=== PATIENT | female | born 1950 | race American Indian/Alaskan Native ===

== ENCOUNTER 2019-06-08 07:58 | Day surgery (SDC) | payer BC, OTHER, MEDICARE ==
[2019-06-08] MEDS ORDERED: Dexamethasone 4 MG/ML SDV INH ONE (07:59)
[2019-06-08] MEDS ORDERED: Midazolam 1 MG/ML 2 ML SDV IV ONE (07:59)
[2019-06-08] MEDS ORDERED: Acetaminophen 325 MG Tab PO PRN (08:00)
[2019-06-08] MEDS ORDERED: Povidone-Iodine 5% Sterile Ophth Soln 30 ML Bottle EYERT ONE ×2 (08:00→09:15)
[2019-06-08] MEDS ORDERED: Cataract Ophth Solution EYERT ONE (08:00)
[2019-06-08] MEDS ORDERED: Proparacaine 0.5% Ophth Soln 15 ML Bottle EYERT ONE (08:00)
[2019-06-08] MEDS ORDERED: Moxifloxacin 0.5% Ophth Soln 3 ML Bottle EYERT ONE (08:00)
[2019-06-08] MEDS ORDERED: Timolol Maleate 0.5% Ophth Soln 5 ML Bottle EYERT ONE (08:00)
[2019-06-08] MEDS ORDERED: Phenylephrine 10% Ophth Soln 5 ML Bot EYERT PRN (08:00)
[2019-06-08] MEDS ORDERED: Phenylephrine 10% Ophth Soln 5 ML Bot EYERT ONE (08:00)
[2019-06-08] MEDS ORDERED: Sodium Chloride 0.9% 10 ML Syringe FLUSH PRN (08:00)
[2019-06-08] MEDS ORDERED: Ondansetron 4 MG/2 ML SDV IVPUSH PRN (08:00)
[2019-06-08] MEDS ORDERED: Lidocaine 1% 30 ML SDV ONE (09:15)
[2019-06-08] MEDS ORDERED: Apraclonidine 0.5% Ophth Soln 5 ML Bot EYERT ONE (09:15)
[2019-06-08] MEDS ORDERED: Tetracaine HCl/PF 0.5% 4 ML Bottle EYERT ONE (09:15)
[2019-06-08] MEDS ORDERED: Diclofenac Sodium 0.1% Ophth Soln 5 ML Bottle EYERT ONE (09:15)
[2019-06-08] MEDS ORDERED: Dexamethasone/Tobramycin 0.1-0.3% Ophth Oint 3.5 GM Tube EYERT ONE (09:16)
[2019-06-08] MEDS ORDERED: Chondroitin Sulfate/Hyaluronate Sodium Ophth Inj 0.75 ML Syringe EYERT ONE (09:17)
[2019-06-08] MEDS ORDERED: Balanced Salt Solution Ophth Irrig 500 ML Bottle IOCULAR ONE (09:17)
[2019-06-08] MEDS ORDERED: Vancomycin 500 MG SDV EYERT ONE (09:17)
--- NOTE | 2019-06-09 08:34 | OR ---
DATE: 06/08/2019 PREOPERATIVE DIAGNOSIS: Visually significant mixed cataract, right eye. POSTOPERATIVE DIAGNOSIS: Visually significant mixed cataract, right eye. PROCEDURE: Extracapsular cataract extraction with intraocular lens implant, right eye. ANESTHESIA: Topical/local MAC. COMPLICATIONS: None. INDICATION: Ms. Mazariegos was seen in the clinic with complaints of blurred vision. The examination revealed visually significant mixed cataract. I explained options, offered cataract surgery, and I explained risks, including, but not limited to, infection, retinal detachment, loss of vision, need for additional surgery, amongst others. We discussed implant options. She has requested a monofocal implant. She understands that she may require glasses following surgery, especially for near work. OPERATIVE DESCRIPTION: After informed consent was obtained and the risks, benefits, and alternatives were explained, the patient was brought to the operative suite and topical anesthesia was administered. The patient was then prepped and draped in the sterile fashion and attention was placed on the right eye. A sterile lid speculum was placed into the right eye to allow operative exposure. A full-thickness paracentesis was made in the temporal portion of the operative eye. Preservative-free lidocaine 0.1 mL was injected into the anterior chamber followed by viscoelastic. A full-thickness corneal incision was then made into the anterior chamber. A bent needle cystotome was used to create a small nancie in the anterior capsule. The capsulorrhexis forceps was then used to create a 360-degree curvilinear capsulorrhexis. The nucleus was then removed using a phacoemulsification handpiece and the remaining cortical material was then removed with irrigation and aspiration handpiece. Following removal of the cortical material, the capsular bag was then inspected and noted to be free of any holes or tears. Viscoelastic was then injected into the capsular bag and the intraocular lens was inserted into the capsular bag. The viscoelastic material was then removed from both the anterior and posterior chambers and from behind the IOL. The lens and capsular bag were then reinspected. The IOL was well centered and the capsular bag intact. The wound and paracentesis sites were inspected and hydrated with balanced saline solution. Both were found to be self- sealing. The intraocular pressure was assessed digitally and found to be within normal range. A good red reflex was noted at the completion of the procedure. No complications occurred during the operation. At the completion of the procedure, Maxitrol, Voltaren, and Iopidine drops were placed into the operative eye. A sterile eye shield was placed over the operative eye and the patient was transported to the postoperative recovery area having tolerated the procedure well. Postoperative instructions were given along with a postoperative appointment. The patient was advised to call with any questions or concerns. [facility] /[id number]
== END 2019-06-08 10:25 | disposition home or self-care (01) ==
LOC: DL.SDS 07:58
PROVIDERS: ATTEND Ophthalmology
DX: E11.36 Type 2 diabetes mellitus with diabetic cataract (principal); I10 Essential (primary) hypertension; I25.10 Atherosclerotic heart disease of native coronary artery without angina pectoris; E78.5 Hyperlipidemia, unspecified; K76.0 Fatty (change of) liver, not elsewhere classified; E11.40 Type 2 diabetes mellitus with diabetic neuropathy, unspecified; E55.9 Vitamin D deficiency, unspecified; Z79.84 Long term (current) use of oral hypoglycemic drugs; Z88.1 Allergy status to other antibiotic agents; Z88.0 Allergy status to penicillin; Z88.2 Allergy status to sulfonamides; Z88.5 Allergy status to narcotic agent; Z88.6 Allergy status to analgesic agent; Z79.899 Other long term (current) drug therapy; Z79.82 Long term (current) use of aspirin
CPT/HCPCS: 66984; 82962; A9270; J1100; J2001; J2250; J3370; V2632

== ENCOUNTER 2023-03-27 18:01 | Emergency (ER) | payer BC, OTHER ==
[2023-03-27] MEDS ORDERED: Diltiazem 25 MG/5 ML SDV IVPUSH ONE ×2 (18:19→19:43)
[2023-03-27 18:27] LABS: BASOPHILS PERCENT AUTO 0.2 % (0.0-1.0); EOSINOPHILS PERCENT AUTO 1.6 % (1.0-3.0); HEMATOCRIT 44.7 % (37.0-47.0); HEMOGLOBIN 14.6 g/dL (12.0-16.0); LYMPHOCYTES PERCENT AUTO 24.1 % (20.5-50.1); MEAN CORPUSCULAR HEMOGLOBIN 28.7 pg (27.0-34.0); MEAN CORPUSCULAR HGB CONC 32.7 g/dL (33.0-35.0); MEAN CORPUSCULAR VOLUME 87.8 fL (80-100); NEUTROPHILS PERCENT AUTO 64.1 % (42.2-75.2); PLATELET COUNT,PLT 245 10^3/uL (150-450); RED BLOOD CELL COUNT 5.09 10^6/uL (4.2-5.4); WHITE BLOOD CELL COUNT,WBC 8.7 10^3/uL (5.0-10.0)
[2023-03-27 18:44] LABS: PROTHROMBIN TIME 9.9 SEC (9.0-12.0)
[2023-03-27 18:45] LABS: AMPHETAMINES,URINE NEGATIVE (NEGATIVE); BARBITURATES,URINE NEGATIVE (NEGATIVE); BENZODIAZEPINE,URINE NEGATIVE (NEGATIVE); MDMA (ECSTASY), URINE NEGATIVE (NEGATIVE); METHADONE,URINE NEGATIVE (NEGATIVE); METHAMPHETAMINES,URINE NEGATIVE (NEGATIVE); OPIATES,URINE NEGATIVE (NEGATIVE); OXYCODONE,URINE NEGATIVE (NEGATIVE); PHENCYCLIDINE,URINE NEGATIVE (NEGATIVE); TCA,URINE NEGATIVE (NEGATIVE)
[2023-03-27 18:58] LABS: ALANINE AMINOTRANSFERASE,ALT 27 U/L (14-59); ALBUMIN 3.6 g/dL (3.4-5.0); ALKALINE PHOSPHATASE 99 U/L (46-116); ANION GAP 11.4 mEq/L (7-13); ASPARTATE AMNIOTRANSFERASE,AST 26 U/L (15-37); BILIRUBIN TOTAL 0.7 mg/dL (0.2-1.0); BLOOD UREA NITROGEN,BUN 14 mg/dL (7-18); BUN/CREATININE RATIO 15.7 (No establ ref range); C-REACTIVE PROTEIN < 0.2 mg/dL (0.0-0.9); CARBON DIOXIDE,CO2 30 mmol/L (21-32); CHLORIDE,CL 104 mmol/L (98-107); CREATININE 0.89 mg/dL (0.55-1.02); EST CRCL DRUG DOSING (CG) 51.41 mL/min; ESTIMATED GFR 69 mL/min (>=60); ETHANOL BLOOD MEDICAL < 3 mg/dL (0); GLUCOSE RANDOM 190 mg/dL (70-99); POTASSIUM,K 4.4 mmol/L (3.5-5.1); PROTEIN TOTAL,TP 7.3 g/dL (6.4-8.2); SODIUM,NA 141 mmol/L (136-145); TSH ULTRASENSITIVE 0.69 uIU/mL (0.36-3.74)
[2023-03-27] MEDS ORDERED: Sodium Chloride 0.9% 1,000 ML IV ONE (20:21)
[2023-03-27] MEDS ORDERED: Apixaban 5 MG Tab PO ONE (20:51)
== END 2023-03-27 21:12 | disposition home or self-care (01) ==
LOC: DL.ED 18:01
DX: I48.91 Unspecified atrial fibrillation (principal); I25.10 Atherosclerotic heart disease of native coronary artery without angina pectoris; E78.00 Pure hypercholesterolemia, unspecified; I10 Essential (primary) hypertension; E11.43 Type 2 diabetes mellitus with diabetic autonomic (poly)neuropathy; Z79.82 Long term (current) use of aspirin; Z79.84 Long term (current) use of oral hypoglycemic drugs; Z79.899 Other long term (current) drug therapy; Z88.0 Allergy status to penicillin; Z88.1 Allergy status to other antibiotic agents; Z88.2 Allergy status to sulfonamides; Z88.5 Allergy status to narcotic agent; Z88.8 Allergy status to other drugs, medicaments and biological substances
CPT/HCPCS: 36415; 71045; 80053; 80305; 80307; 84443; 84484; 85025; 85379; 85610; 86140; 93005; 93010; 96361; 96374; 96376; 99284; 99285; A9270; J3490; J7030

== ENCOUNTER 2023-04-19 06:32 | Emergency (ER) | payer BC, OTHER ==
[2023-04-19] MEDS ORDERED: Aspirin 81 MG Tab.Chew PO ONE (06:45)
[2023-04-19] MEDS ORDERED: Sodium Chloride 0.9% 10 ML Syringe FLUSH PRN (06:45)
[2023-04-19 06:54] LABS: BASOPHILS PERCENT AUTO 0.4 % (0.0-1.0); EOSINOPHILS PERCENT AUTO 4.5 % (1.0-3.0); HEMATOCRIT 44.1 % (37.0-47.0); HEMOGLOBIN 14.3 g/dL (12.0-16.0); LYMPHOCYTES PERCENT AUTO 26.7 % (20.5-50.1); MEAN CORPUSCULAR HEMOGLOBIN 28.7 pg (27.0-34.0); MEAN CORPUSCULAR HGB CONC 32.4 g/dL (33.0-35.0); MEAN CORPUSCULAR VOLUME 88.6 fL (80-100); MONOCYTES PERCENT AUTO 10.2 % (2-8); NEUTROPHILS PERCENT AUTO 58.2 % (42.2-75.2); PLATELET COUNT,PLT 271 10^3/uL (150-450); RED BLOOD CELL COUNT 4.98 10^6/uL (4.2-5.4); WHITE BLOOD CELL COUNT,WBC 6.7 10^3/uL (5.0-10.0)
[2023-04-19 07:13] LABS: ANION GAP 14.9 mEq/L (7-13); CALCIUM 8.8 mg/dL (8.5-10.1); CREATININE 0.56 mg/dL (0.55-1.02); EST CRCL DRUG DOSING (CG) 81.71 mL/min; POTASSIUM,K 4.9 mmol/L (3.5-5.1)
== END 2023-04-19 09:54 | disposition home or self-care (01) ==
LOC: DL.ED 06:32
DX: R07.89 Other chest pain (principal); K52.9 Noninfective gastroenteritis and colitis, unspecified; I25.10 Atherosclerotic heart disease of native coronary artery without angina pectoris; I48.91 Unspecified atrial fibrillation; I10 Essential (primary) hypertension; E11.9 Type 2 diabetes mellitus without complications; J44.9 Chronic obstructive pulmonary disease, unspecified; Z88.0 Allergy status to penicillin; Z88.1 Allergy status to other antibiotic agents; Z88.2 Allergy status to sulfonamides; Z88.5 Allergy status to narcotic agent; Z86.16 Personal history of COVID-19; Z79.84 Long term (current) use of oral hypoglycemic drugs; Z79.899 Other long term (current) drug therapy
CPT/HCPCS: 36415; 71045; 80048; 83690; 84484; 85025; 85379; 93005; 93010; 99284; 99285; A9270-GY; J3490

== ENCOUNTER 2023-04-24 20:25 | Emergency (ER) | payer BC, OTHER ==
[2023-04-24] MEDS ORDERED: Sodium Chloride 0.9% 10 ML Syringe FLUSH PRN (21:24)
[2023-04-24] MEDS ORDERED: Sodium Chloride 0.9% 1,000 ML IV ONE (21:25)
[2023-04-24] MEDS ORDERED: Ondansetron 4 MG/2 ML SDV IVPUSH ONE (21:25)
[2023-04-24 21:45] LABS: BASOPHILS PERCENT AUTO 0.4 % (0.0-1.0); EOSINOPHILS PERCENT AUTO 3.5 % (1.0-3.0); HEMATOCRIT 40.2 % (37.0-47.0); HEMOGLOBIN 13.1 g/dL (12.0-16.0); LYMPHOCYTES PERCENT AUTO 29.9 % (20.5-50.1); MEAN CORPUSCULAR HEMOGLOBIN 28.9 pg (27.0-34.0); MEAN CORPUSCULAR HGB CONC 32.6 g/dL (33.0-35.0); MEAN CORPUSCULAR VOLUME 88.5 fL (80-100); MONOCYTES PERCENT AUTO 11.4 % (2-8); NEUTROPHILS PERCENT AUTO 54.8 % (42.2-75.2); PLATELET COUNT,PLT 209 10^3/uL (150-450); RED BLOOD CELL COUNT 4.54 10^6/uL (4.2-5.4); WHITE BLOOD CELL COUNT,WBC 7.6 10^3/uL (5.0-10.0)
[2023-04-24 22:03] LABS: ALANINE AMINOTRANSFERASE,ALT 25 U/L (14-59); ALBUMIN 3.4 g/dL (3.4-5.0); ALKALINE PHOSPHATASE 89 U/L (46-116); AMYLASE 46 U/L (25-115); ANION GAP 12.8 mEq/L (7-13); ASPARTATE AMNIOTRANSFERASE,AST 28 U/L (15-37); BILIRUBIN TOTAL 0.5 mg/dL (0.2-1.0); BLOOD UREA NITROGEN,BUN 10 mg/dL (7-18); BUN/CREATININE RATIO 16.4 (No establ ref range); C-REACTIVE PROTEIN < 0.2 mg/dL (0.0-0.9); CALCIUM 8.8 mg/dL (8.5-10.1); CARBON DIOXIDE,CO2 28 mmol/L (21-32); CHLORIDE,CL 103 mmol/L (98-107); CREATININE 0.61 mg/dL (0.55-1.02); EST CRCL DRUG DOSING (CG) 75.01 mL/min; ESTIMATED GFR 95 mL/min (>=60); GLUCOSE RANDOM 129 mg/dL (70-99); LIPASE 187 U/L (73-393); POTASSIUM,K 3.8 mmol/L (3.5-5.1); PROTEIN TOTAL,TP 6.9 g/dL (6.4-8.2); SODIUM,NA 140 mmol/L (136-145)
[2023-04-24 22:06] LABS: LACTIC ACID 1.8 mmol/L (0.4-2.0)
[2023-04-24 22:26] LABS: APPEARANCE,URINE CLEAR (CLEAR); BILIRUBIN,URINE NEGATIVE (NEGATIVE); COLOR,URINE YELLOW (YELLOW); GLUCOSE,URINE NEGATIVE (NEGATIVE); KETONES,URINE NEGATIVE (NEGATIVE); LEUKOCYTE ESTERASE,URINE TRACE (NEGATIVE); NITRITE,URINE NEGATIVE (NEGATIVE); OCCULT BLOOD,URINE NEGATIVE (NEGATIVE); PH,URINE 7.5 (5.0-9.0); PROTEIN,URINE NEGATIVE (NEGATIVE); UROBILINOGEN,URINE 0.2 mg/dL (0.2-1.0)
[2023-04-24 22:29] LABS: EPITHELIAL CELLS,URINE OCCASIONAL /HPF (NOT SEEN); RBC,URINE NOT SEEN /HPF (0-5); WBC,URINE 0-5 /HPF (0-5/HPF)
[2023-04-24 22:30] LABS: BACTERIA,URINE FEW /HPF (0-FEW/HPF)
== END 2023-04-24 23:09 | disposition home or self-care (01) ==
LOC: DL.ED 20:25
DX: R10.11 Right upper quadrant pain (principal); R10.31 Right lower quadrant pain; E78.00 Pure hypercholesterolemia, unspecified; J44.9 Chronic obstructive pulmonary disease, unspecified; I10 Essential (primary) hypertension; I25.10 Atherosclerotic heart disease of native coronary artery without angina pectoris; E11.40 Type 2 diabetes mellitus with diabetic neuropathy, unspecified; Z86.16 Personal history of COVID-19; Z88.0 Allergy status to penicillin; Z88.1 Allergy status to other antibiotic agents; Z88.5 Allergy status to narcotic agent; Z88.2 Allergy status to sulfonamides; Z88.6 Allergy status to analgesic agent; Z79.84 Long term (current) use of oral hypoglycemic drugs; Z79.82 Long term (current) use of aspirin; Z79.899 Other long term (current) drug therapy
CPT/HCPCS: 36415; 80053; 81001; 82150; 83605; 83690; 83735; 85025; 86140; 87086; 96374; 99283; 99284-25; J2405; J3490; J7030

== ENCOUNTER 2023-05-26 16:58 | Emergency (ER) | payer BC, OTHER ==
[2023-05-26] MEDS ORDERED: Dexamethasone 4 MG/ML SDV IM ONE (17:12)
== END 2023-05-26 17:43 | disposition home or self-care (01) ==
LOC: DL.ED 16:58
DX: S39.011A Strain of muscle, fascia and tendon of abdomen, initial encounter (principal); I48.91 Unspecified atrial fibrillation; I25.10 Atherosclerotic heart disease of native coronary artery without angina pectoris; I10 Essential (primary) hypertension; E78.00 Pure hypercholesterolemia, unspecified; E11.42 Type 2 diabetes mellitus with diabetic polyneuropathy; Z86.16 Personal history of COVID-19; Z88.0 Allergy status to penicillin; Z88.1 Allergy status to other antibiotic agents; Z88.5 Allergy status to narcotic agent; Z88.6 Allergy status to analgesic agent; Z88.8 Allergy status to other drugs, medicaments and biological substances; Z88.2 Allergy status to sulfonamides; Z79.84 Long term (current) use of oral hypoglycemic drugs; Z79.82 Long term (current) use of aspirin; Z79.899 Other long term (current) drug therapy; X50.0XXA Overexertion from strenuous movement or load, initial encounter
CPT/HCPCS: 96372; 99283; J1100

== ENCOUNTER 2023-10-23 13:34 | Emergency (ER) | payer BC, OTHER | END 2023-10-23 17:02 | disposition home or self-care (01) | LOC: DL.ED 13:34 | DX: S63.501A Unspecified sprain of right wrist, initial encounter (principal); S63.610A Unspecified sprain of right index finger, initial encounter; M25.511 Pain in right shoulder; M54.50 Low back pain, unspecified; R07.89 Other chest pain; I10 Essential (primary) hypertension; I25.10 Atherosclerotic heart disease of native coronary artery without angina pectoris; E78.00 Pure hypercholesterolemia, unspecified; E11.9 Type 2 diabetes mellitus without complications; Z86.16 Personal history of COVID-19; Z88.0 Allergy status to penicillin; Z88.1 Allergy status to other antibiotic agents; Z88.2 Allergy status to sulfonamides; Z88.8 Allergy status to other drugs, medicaments and biological substances; Z79.84 Long term (current) use of oral hypoglycemic drugs; Z79.899 Other long term (current) drug therapy; Z79.82 Long term (current) use of aspirin; Z90.49 Acquired absence of other specified parts of digestive tract; W01.0XXA Fall on same level from slipping, tripping and stumbling without subsequent striking against object, initial encounter | CPT/HCPCS: 71100-LT; 72100; 73030-RT; 73110-RT; 73130-RT; 99283 ==

== ENCOUNTER 2023-12-28 08:12 | Emergency (ER) | payer BC, OTHER ==
[2023-12-28] MEDS ORDERED: Losartan 50 MG Tab PO ONE (09:06)
[2023-12-28] MEDS ORDERED: Carvedilol 6.25 MG Tab PO ONE (09:06)
[2023-12-28 09:21] LABS: ALBUMIN 3.2 g/dL (3.4-5.0); ANION GAP 2.5 mEq/L (7-13); BASOPHILS PERCENT AUTO 0.3 % (0.0-1.0); BILIRUBIN TOTAL 0.4 mg/dL (0.2-1.0); BUN/CREATININE RATIO 17.5 (No establ ref range); CALCIUM 8.7 mg/dL (8.5-10.1); CREATININE 0.57 mg/dL (0.55-1.02); EOSINOPHILS PERCENT AUTO 3.5 % (1.0-3.0); EST CRCL DRUG DOSING (CG) 79.1 mL/min; HEMATOCRIT 41.4 % (37.0-47.0); HEMOGLOBIN 13.2 g/dL (12.0-16.0); LYMPHOCYTES PERCENT AUTO 21.2 % (20.5-50.1); MEAN CORPUSCULAR HEMOGLOBIN 29.3 pg (27.0-34.0); MEAN CORPUSCULAR HGB CONC 31.9 g/dL (33.0-35.0); MONOCYTES PERCENT AUTO 11.6 % (2-8); NEUTROPHILS PERCENT AUTO 63.4 % (42.2-75.2); PLATELET COUNT,PLT 270 10^3/uL (150-450); POTASSIUM,K 4.5 mmol/L (3.5-5.1); PROTEIN TOTAL,TP 7.1 g/dL (6.4-8.2); WHITE BLOOD CELL COUNT,WBC 6.7 10^3/uL (5.0-10.0)
[2023-12-28 09:29] LABS: A/G RATIO 0.82
== END 2023-12-28 10:38 | disposition home or self-care (01) ==
LOC: DL.ED 08:12
DX: R07.89 Other chest pain (principal); I48.91 Unspecified atrial fibrillation; I25.10 Atherosclerotic heart disease of native coronary artery without angina pectoris; I10 Essential (primary) hypertension; E78.00 Pure hypercholesterolemia, unspecified; J44.9 Chronic obstructive pulmonary disease, unspecified; E11.42 Type 2 diabetes mellitus with diabetic polyneuropathy; Z86.16 Personal history of COVID-19; Z79.01 Long term (current) use of anticoagulants; Z79.84 Long term (current) use of oral hypoglycemic drugs; Z88.1 Allergy status to other antibiotic agents; Z88.2 Allergy status to sulfonamides; Z88.8 Allergy status to other drugs, medicaments and biological substances; Z88.5 Allergy status to narcotic agent; Z88.0 Allergy status to penicillin
CPT/HCPCS: 36415; 80053; 84484; 85025; 93010; 99284; 99285

== ENCOUNTER 2024-03-15 11:57 | Inpatient (IN) | payer MEDICARE, BC, OTHER ==
[2024-03-15 12:37] LABS: BASOPHILS PERCENT AUTO 0.4 % (0.0-1.0); EOSINOPHILS PERCENT AUTO 5.5 % (1.0-3.0); HEMATOCRIT 43.2 % (37.0-47.0); HEMOGLOBIN 13.9 g/dL (12.0-16.0); LYMPHOCYTES PERCENT AUTO 21.7 % (20.5-50.1); MEAN CORPUSCULAR HEMOGLOBIN 28.6 pg (27.0-34.0); MEAN CORPUSCULAR HGB CONC 32.2 g/dL (33.0-35.0); MEAN CORPUSCULAR VOLUME 88.9 fL (80-100); MONOCYTES PERCENT AUTO 10.4 % (2-8); PLATELET COUNT,PLT 282 10^3/uL (150-450); RED BLOOD CELL COUNT 4.86 10^6/uL (4.2-5.4); WHITE BLOOD CELL COUNT,WBC 8.1 10^3/uL (5.0-10.0)
[2024-03-15] MEDS: Sodium Chloride 0.9% 10 ML Syringe FLUSH PRN (12:38)
[2024-03-15 12:46] LABS: APPEARANCE,URINE SLIGHTLY CLOUDY (CLEAR); BILIRUBIN,URINE NEGATIVE (NEGATIVE); COLOR,URINE YELLOW (YELLOW); GLUCOSE,URINE NEGATIVE (NEGATIVE); KETONES,URINE NEGATIVE (NEGATIVE); LEUKOCYTE ESTERASE,URINE SMALL (NEGATIVE); NITRITE,URINE NEGATIVE (NEGATIVE); OCCULT BLOOD,URINE MODERATE (NEGATIVE); PH,URINE 8.5 (5.0-9.0); PROTEIN,URINE NEGATIVE (NEGATIVE); UROBILINOGEN,URINE 0.2 mg/dL (0.2-1.0)
[2024-03-15 12:52] LABS: ALBUMIN 2.9 g/dL (3.4-5.0); ANION GAP 11.9 mEq/L (7-13); BILIRUBIN TOTAL 0.6 mg/dL (0.2-1.0); BUN/CREATININE RATIO 19.3 (No establ ref range); CREATININE 0.57 mg/dL (0.55-1.02); EST CRCL DRUG DOSING (CG) 79.1 mL/min; MAGNESIUM 1.9 mg/dL (1.8-2.4); POTASSIUM,K 3.9 mmol/L (3.5-5.1); PROTEIN TOTAL,TP 6.8 g/dL (6.4-8.2)
[2024-03-15 12:53] LABS: A/G RATIO 0.74
[2024-03-15 12:54] LABS: LACTIC ACID 1.3 mmol/L (0.4-2.0)
[2024-03-15 13:01] LABS: EPITHELIAL CELLS,URINE MODERATE /HPF (NOT SEEN)
[2024-03-15 13:02] LABS: BACTERIA,URINE MANY /HPF (0-FEW/HPF); MUCUS,URINE FEW /LPF (NOT SEEN)
[2024-03-15] MEDS: Sodium Chloride 0.9% 500 ML IV SCH (13:56)
[2024-03-15] MEDS: Levofloxacin/Dextrose 5%-Water 500 MG in Premix Bag 1 BAG IV ONE (13:56)
[2024-03-15] MEDS: methylPREDNISolone Sodium Succinate 125 MG/2 ML SDV IVPUSH ONE (13:57)
[2024-03-15] MEDS ORDERED: Ondansetron 4 MG Tab.DIS PO PRN (15:19)
[2024-03-15] MEDS ORDERED: Docusate Sodium 100 MG Cap PO PRN (15:19)
[2024-03-15] MEDS ORDERED: Acetaminophen/HYDROcodone 325-10 MG Tab PO PRN (15:19)
[2024-03-15] MEDS ORDERED: Acetaminophen 325 MG Tab PO PRN (15:19)
[2024-03-15] MEDS ORDERED: Levofloxacin/Dextrose 5%-Water 500 MG in Premix Bag 1 BAG IV SCH (15:30)
[2024-03-15] MEDS ORDERED: 50% Dextrose in Water 50 ML Syringe IVPUSH PRN (15:30)
[2024-03-15] MEDS ORDERED: Glucagon,Human Recombinant 1 MG Vial IM PRN (15:30)
[2024-03-15] MEDS: methylPREDNISolone Sodium Succinate 40 MG/1 ML SDV IVPUSH SCH (15:39)
[2024-03-15] MEDS: Albuterol/Ipratropium 3.0-0.5 MG/3 ML Neb Soln NEB SCH (17:02)
[2024-03-15] MEDS: Insulin Lispro 100 Units/ML 3 ML Vial SUBCUT SCH (17:11)
[2024-03-15] MEDS: metFORMIN 500 MG Tab PO SCH (17:35)
[2024-03-15] MEDS: Sodium Chloride 0.9% 1,000 ML IV SCH (19:51)
[2024-03-15] MEDS: Gabapentin 300 MG Cap PO SCH (20:40)
[2024-03-15] MEDS: Apixaban 5 MG Tab PO SCH (20:40)
[2024-03-15] MEDS: Rosuvastatin 10 MG Tab PO SCH (20:40)
[2024-03-15] MEDS: Magnesium Oxide 400 MG Tab PO SCH (20:40)
[2024-03-15] MEDS: Metoprolol Tartrate 50 MG Tab PO SCH (20:40)
[2024-03-15] MEDS: Sotalol 80 MG Tab PO SCH (20:41)
[2024-03-15] MEDS ORDERED: Non-Formulary Medication 1 Each (Magnesium Oxide [Magnesium Oxide] 400 MG Tablet) PO SCH (21:00)
[2024-03-15] MEDS: Omeprazole 20 MG Cap.CR PO SCH (22:15)
[2024-03-15] MEDS: Insulin Glarg,Human.Rec.Analog 100 Unit/ML 10 ML Vial SUBCUT SCH (22:16)
[2024-03-16 06:41] LABS: BASOPHILS PERCENT AUTO 0.1 % (0.0-1.0); HEMATOCRIT 39.1 % (37.0-47.0); HEMOGLOBIN 12.5 g/dL (12.0-16.0); MEAN CORPUSCULAR HEMOGLOBIN 28.5 pg (27.0-34.0); MEAN CORPUSCULAR VOLUME 89.1 fL (80-100); MONOCYTES PERCENT AUTO 1.7 % (2-8); NEUTROPHILS PERCENT AUTO 85.2 % (42.2-75.2); PLATELET COUNT,PLT 250 10^3/uL (150-450); RED BLOOD CELL COUNT 4.39 10^6/uL (4.2-5.4); WHITE BLOOD CELL COUNT,WBC 7.1 10^3/uL (5.0-10.0)
[2024-03-16 06:54] LABS: ANION GAP 14.4 mEq/L (7-13); CALCIUM 8.8 mg/dL (8.5-10.1); CREATININE 0.58 mg/dL (0.55-1.02); EST CRCL DRUG DOSING (CG) 77.73 mL/min; POTASSIUM,K 4.4 mmol/L (3.5-5.1)
[2024-03-16] MEDS ORDERED: Albuterol 6.7 GM Inhaler INH PRN (08:09)
[2024-03-16] MEDS: Lisinopril 20 MG Tab PO SCH (08:11)
[2024-03-16] MEDS: Multivitamin Tab PO SCH (08:12)
[2024-03-16] MEDS: amLODIPine 5 MG Tab PO SCH (08:14)
[2024-03-16] MEDS: Levofloxacin/Dextrose 5%-Water 500 MG in Premix Bag 1 BAG IV SCH (14:07)
[2024-03-16] MEDS: SEMAGLUTIDE 0.25 MG/0.4 ML SQ SCH (22:01)
== END 2024-03-17 13:00 | disposition home or self-care (01) | DRG 190 ==
LOC: DL.ED 11:57 → UNDOADMIN 14:51 → DL.MS 14:51
PROVIDERS: ADMIT Internal Medicine; ATTEND Internal Medicine
DX: J44.1 Chronic obstructive pulmonary disease with (acute) exacerbation (principal); J18.9 Pneumonia, unspecified organism; N39.0 Urinary tract infection, site not specified; J44.0 Chronic obstructive pulmonary disease with (acute) lower respiratory infection; I10 Essential (primary) hypertension; I48.91 Unspecified atrial fibrillation; I25.10 Atherosclerotic heart disease of native coronary artery without angina pectoris; E78.00 Pure hypercholesterolemia, unspecified; E11.40 Type 2 diabetes mellitus with diabetic neuropathy, unspecified; E11.42 Type 2 diabetes mellitus with diabetic polyneuropathy; G89.29 Other chronic pain; M54.9 Dorsalgia, unspecified; I48.0 Paroxysmal atrial fibrillation; R09.02 Hypoxemia; Z88.0 Allergy status to penicillin; Z88.5 Allergy status to narcotic agent; Z88.1 Allergy status to other antibiotic agents; Z88.6 Allergy status to analgesic agent; Z88.8 Allergy status to other drugs, medicaments and biological substances; Z79.4 Long term (current) use of insulin; Z88.2 Allergy status to sulfonamides; Z79.01 Long term (current) use of anticoagulants; Z86.16 Personal history of COVID-19; Z79.84 Long term (current) use of oral hypoglycemic drugs; Z90.49 Acquired absence of other specified parts of digestive tract; Z98.890 Other specified postprocedural states; Z79.899 Other long term (current) drug therapy; Z86.010 Personal history of colon polyps; Z87.891 Personal history of nicotine dependence
CPT/HCPCS: 36415; 71046; 80053; 81001; 83605; 83735; 83880; 84484; 85025; 87086; 87804 ×2; 93005; J1956; J2919; J7040; U0002; 80048; 82947; 87088; 87186; 93010; 94640; 96365; 96375; 99285; 99285-25; A9270-GY; J1815-GY; J3490; J7030; J7620-GY

== ENCOUNTER 2024-07-23 18:12 | Emergency (ER) | payer BC, OTHER ==
[2024-07-23] MEDS ORDERED: Sodium Chloride 0.9% 10 ML Syringe FLUSH PRN (18:27)
[2024-07-23 18:44] LABS: BASOPHILS PERCENT AUTO 0.2 % (0.0-1.0); HEMATOCRIT 43.7 % (37.0-47.0); HEMOGLOBIN 14.1 g/dL (12.0-16.0); LYMPHOCYTES PERCENT AUTO 29.2 % (20.5-50.1); MEAN CORPUSCULAR HEMOGLOBIN 29.1 pg (27.0-34.0); MEAN CORPUSCULAR HGB CONC 32.3 g/dL (33.0-35.0); MEAN CORPUSCULAR VOLUME 90.1 fL (80-100); MONOCYTES PERCENT AUTO 8.4 % (2-8); NEUTROPHILS PERCENT AUTO 58.2 % (42.2-75.2); PLATELET COUNT,PLT 278 10^3/uL (150-450); RED BLOOD CELL COUNT 4.85 10^6/uL (4.2-5.4); WHITE BLOOD CELL COUNT,WBC 8.5 10^3/uL (5.0-10.0)
[2024-07-23 19:01] LABS: PROTHROMBIN TIME 10.1 SEC (9.0-12.0); PTT,PARTIAL THROMBOPLSTIN TIME 26.9 SEC (22.0-34.0)
[2024-07-23 19:05] LABS: B-TYPE NATRIURETIC PEPTIDE,BNP 47 pg/ml (0-100)
[2024-07-23 19:08] LABS: A/G RATIO 1.1; ALANINE AMINOTRANSFERASE,ALT 18 U/L (14-59); ALBUMIN 3.7 g/dL (3.4-5.0); ALKALINE PHOSPHATASE 112 U/L (46-116); ANION GAP 12.7 mEq/L (7-13); ASPARTATE AMNIOTRANSFERASE,AST 19 U/L (15-37); BILIRUBIN TOTAL 0.4 mg/dL (0.2-1.0); BLOOD UREA NITROGEN,BUN 10 mg/dL (7-18); BUN/CREATININE RATIO 19.2 (No establ ref range); CALCIUM 9.4 mg/dL (8.5-10.1); CARBON DIOXIDE,CO2 28 mmol/L (21-32); CHLORIDE,CL 104 mmol/L (98-107); CREATININE 0.52 mg/dL (0.55-1.02); GLUCOSE RANDOM 115 mg/dL (70-99); POTASSIUM,K 3.7 mmol/L (3.5-5.1); PROTEIN TOTAL,TP 7.1 g/dL (6.4-8.2); SODIUM,NA 141 mmol/L (136-145)
[2024-07-23 19:09] LABS: C-REACTIVE PROTEIN < 0.50 ng/dL (<=0.50); ESTIMATED GFR 98 mL/min (>=60); LACTIC ACID 1.6 mmol/L (0.4-2.0)
[2024-07-23 19:35] LABS: BILIRUBIN,URINE NEGATIVE (NEGATIVE); GLUCOSE,URINE NEGATIVE (NEGATIVE); KETONES,URINE NEGATIVE (NEGATIVE); LEUKOCYTE ESTERASE,URINE TRACE (NEGATIVE); NITRITE,URINE NEGATIVE (NEGATIVE); OCCULT BLOOD,URINE TRACE-LYSED (NEGATIVE); PH,URINE 8.5 (5.0-9.0); PROTEIN,URINE NEGATIVE (NEGATIVE); UROBILINOGEN,URINE 0.2 mg/dL (0.2-1.0)
[2024-07-23 19:36] LABS: APPEARANCE,URINE SLIGHTLY CLOUDY (CLEAR); COLOR,URINE LIGHT YELLOW (YELLOW)
[2024-07-23 19:44] LABS: WBC,URINE 0-5 /HPF (0-5/HPF)
[2024-07-23 19:45] LABS: AMORPHOUS SEDIMENT,URINE FEW /HPF (NOT SEEN); BACTERIA,URINE MANY /HPF (0-FEW/HPF); EPITHELIAL CELLS,URINE FEW /HPF (NOT SEEN)
[2024-07-23] MEDS: Take Home: Nitrofurantoin Monohydrate/Macrocrystalline 100 MG, 6 Cap Pack PO ONE (20:18)
== END 2024-07-23 20:35 | disposition home or self-care (01) ==
LOC: DL.ED 18:12
DX: R00.2 Palpitations (principal); R07.89 Other chest pain; R06.02 Shortness of breath; I10 Essential (primary) hypertension; E78.00 Pure hypercholesterolemia, unspecified; E11.9 Type 2 diabetes mellitus without complications; Z86.16 Personal history of COVID-19; Z90.49 Acquired absence of other specified parts of digestive tract; Z79.899 Other long term (current) drug therapy; Z79.4 Long term (current) use of insulin; Z88.2 Allergy status to sulfonamides; Z88.8 Allergy status to other drugs, medicaments and biological substances; Z88.5 Allergy status to narcotic agent; Z88.0 Allergy status to penicillin; Z88.1 Allergy status to other antibiotic agents
CPT/HCPCS: 36415; 71045; 80053; 81001; 83605; 83735; 83880; 84145; 84484; 85025; 85610; 85730; 86140; 87086; 87088; 87186; 93005; 93010; 99284; 99285; A9270-GY

== ENCOUNTER 2025-08-16 11:50 | Emergency (ER) | payer BC, OTHER ==
[2025-08-16] MEDS ORDERED: Sodium Chloride 0.9% 10 ML Syringe FLUSH PRN (12:14)
[2025-08-16 12:30] LABS: PLATELET COUNT,PLT 271 10^3/uL (150-450); RED BLOOD CELL COUNT 4.60 10^6/uL (4.2-5.4); WHITE BLOOD CELL COUNT,WBC 6.9 10^3/uL (5.0-10.0)
[2025-08-16 12:36] LABS: BASOPHILS PERCENT AUTO 0.3 % (0.0-1.0); EOSINOPHILS PERCENT AUTO 5.1 % (1.0-3.0); LYMPHOCYTES PERCENT AUTO 28.1 % (20.5-50.1); MONOCYTES PERCENT AUTO 10.0 % (2-8); NEUTROPHILS PERCENT AUTO 56.5 % (42.2-75.2)
[2025-08-16 12:50] LABS: INR 0.9 (0.9-1.2); PTT,PARTIAL THROMBOPLSTIN TIME 27.6 SEC (22.0-34.0)
[2025-08-16 12:53] LABS: B-TYPE NATRIURETIC PEPTIDE,BNP 96.0 pg/ml (0-100)
[2025-08-16 12:54] LABS: ALANINE AMINOTRANSFERASE,ALT 26.0 U/L (14-59); ASPARTATE AMNIOTRANSFERASE,AST 24.0 U/L (15-37); BILIRUBIN TOTAL 0.5 mg/dL (0.2-1.0); BLOOD UREA NITROGEN,BUN 8.0 mg/dL (7-18); CARBON DIOXIDE,CO2 29.0 mmol/L (21-32); CHLORIDE,CL 105.0 mmol/L (98-107); CREATININE 0.64 mg/dL (0.55-1.02); EST CRCL DRUG DOSING (CG) 66.59 mL/min; GLUCOSE RANDOM 150.0 mg/dL (70-99); POTASSIUM,K 4.0 mmol/L (3.5-5.1); PROTEIN TOTAL,TP 7.0 g/dL (6.4-8.2); SODIUM,NA 142.0 mmol/L (136-145)
[2025-08-16 12:59] LABS: A/G RATIO 0.89; ESTIMATED GFR 93.0 mL/min (>=60)
[2025-08-16 13:09] LABS: EOSINOPHILS PERCENT MAN 3 % (1-3); LYMPHOCYTES PERCENT MAN 35 % (20-50); MONOCYTES PERCENT MAN 7 % (2-8); SEG NEUTROPHILS PERCENT MAN 55 % (42-75)
[2025-08-16] MEDS: Ondansetron 4 MG/2 ML SDV IVPUSH ONE (14:05)
[2025-08-16] MEDS: fentaNYL 100 MCG/2 ML SDV IVPUSH ONE (15:21)
[2025-08-16] MEDS: fentaNYL 100 MCG/2 ML SDV ONE (15:22)
[2025-08-16] MEDS: Midazolam 5 MG/ML 10 ML MDV IV STA (15:26)
== END 2025-08-16 15:16 | disposition home or self-care (01) ==
LOC: DL.ED 11:50
DX: I48.91 Unspecified atrial fibrillation (principal); I25.10 Atherosclerotic heart disease of native coronary artery without angina pectoris; I10 Essential (primary) hypertension; E78.00 Pure hypercholesterolemia, unspecified; J44.9 Chronic obstructive pulmonary disease, unspecified; E11.9 Type 2 diabetes mellitus without complications; Z86.16 Personal history of COVID-19; Z88.0 Allergy status to penicillin; Z88.1 Allergy status to other antibiotic agents; Z88.5 Allergy status to narcotic agent; Z88.8 Allergy status to other drugs, medicaments and biological substances; Z79.84 Long term (current) use of oral hypoglycemic drugs; Z79.01 Long term (current) use of anticoagulants; Z79.4 Long term (current) use of insulin; Z79.899 Other long term (current) drug therapy
CPT/HCPCS: 36415; 71045; 80053; 83735; 83880; 84484; 85025; 85610; 85730; 92960; 93005; 93010; 96374; 99152; 99285; J2405; J7030

== ENCOUNTER 2025-08-17 19:55 | Emergency (ER) | payer BC, OTHER | END 2025-08-17 21:00 | disposition home or self-care (01) | LOC: DL.ED 19:55 | DX: I48.0 Paroxysmal atrial fibrillation (principal); I10 Essential (primary) hypertension; E11.9 Type 2 diabetes mellitus without complications; Z79.84 Long term (current) use of oral hypoglycemic drugs; Z79.899 Other long term (current) drug therapy; Z79.01 Long term (current) use of anticoagulants; E78.00 Pure hypercholesterolemia, unspecified; I25.10 Atherosclerotic heart disease of native coronary artery without angina pectoris; Z86.16 Personal history of COVID-19; Z88.0 Allergy status to penicillin; Z88.5 Allergy status to narcotic agent; Z88.1 Allergy status to other antibiotic agents | CPT/HCPCS: 99284; A9270 ==